=== PATIENT | female | born 1990 | race African-American/Black ===

== ENCOUNTER 2019-09-03 08:13 | Emergency (ER) | payer OTHER, MEDICAID ==
[~2019-09-03] VITALS: Ht 154.9 cm; Wt 84.4 kg
[~2019-09-03 08:13] MED LIST: HYDR-1421; PRENATAL VIT
[2019-09-03 08:29] VITALS: BP 107/61
== END 2019-09-03 10:21 | disposition home or self-care (01) ==
LOC: ER 08:13
DX: R51 Headache (principal); R61 Generalized hyperhidrosis; R06.02 Shortness of breath; Z20.828 Contact with and (suspected) exposure to other viral communicable diseases
CPT/HCPCS: 71045; 99283; U0003